=== PATIENT | female | born 1940 | race Caucasian/White ===

== ENCOUNTER → 2016-09-25 | Outpatient (CLI) | payer OTHER, MEDICAID | LOC: BHFA 15:15 | PROVIDERS: ATTEND Internal Medicine Interventional Cardiology | DX: R07.9 Chest pain, unspecified (principal) ==

== ENCOUNTER → 2016-10-09 | Outpatient (CLI) | payer OTHER, MEDICAID | LOC: BHFA 08:30 | PROVIDERS: ATTEND Internal Medicine Cardiovascular Disease | DX: R07.9 Chest pain, unspecified (principal) ==

== ENCOUNTER 2016-11-19 14:13 | Emergency (ER) | payer OTHER, MEDICAID ==
--- NOTE | 2016-11-19 16:15 | EDPHY ---
General Narrative: CHIEF COMPLAINT: Fall, multiple areas of pain HISTORY OF PRESENT ILLNESS: Patient complains of falling yesterday. She was standing in her bedroom when she tripped over some stairs near the entrance to the room. She says she fell on the carpeted surface with her left knee 1st. She then her right hand and possibly struck her head. No loss of consciousness. She is complaining of mild headache, mild right hand pain, severe left knee pain, moderate low back pain, moderate right rib pain. All areas are worse with palpation and movement. Difficulty ambulating due to the pain. No numbness or tingling. No saddle anesthesia. No incontinence of bowel or bladder. No chest pain or abdominal pain. No urinary complaints. She says that she was actually on her way to the hospital to get some routine blood work done due to an ongoing issue and was unable to do so. She is asking if this blood work can be drawn here. No other associated complaints or modifying factors. REVIEW OF SYSTEMS: Ten systems reviewed and are negative unless otherwise noted in the HPI PAST MEDICAL HISTORY: Degenerative disc disease, sciatica, her palsy the, arthritis, hypertension, chronic fatigue syndrome, sleep apnea, hypothyroid, celiac disease, depression, cataracts, incontinence, anemia, dysphagia he, neuromas.. Extensive medication list that was reviewed. PAST SURGICAL HISTORY: Hysterectomy, cholecystectomy, carpal tunnel release, right knee total arthroplasty, left knee total arthroplasty SOCIAL HISTORY: Nonsmoker. Lives here independently FAMILY HISTORY: Noncontributory EXAMINATION General Appearance: Alert, no distress Head: normocephalic, atraumatic. No Nunn sign. No raccoon eyes. No outward signs of trauma Eyes: Pupils equal and round, no conjunctival pallor or injection. No hyphema. No dysconjugate gaze. EOMs intact ENT, Mouth: Mucous membranes moist. Airway widely patent Neck: Normal inspection, supple, non-tender. No rigidity or meningismus Respiratory: Lungs are clear to auscultation. No wheezing, rhonchi or crackles Cardiovascular: Regular rate and rhythm. No murmur. Gastrointestinal: Obese Abdomen is soft and nontender Back: Tenderness of the low back. No crepitus, step-off or deformity. He Neurological: GCS 15. A&O, nonfocal, no pronator drift. No dysmetria. Strength is symmetric in all 4 limbs. Skin: Warm and dry, no rash. Bruising of the right hand and cheek. Minimal bruising of the left knee. No lacerations. Extremities: Tenderness to palpation of the left knee and right hand over the 3rd through 5th metacarpals. Range of motion is intact and symmetric in the upper extremities. Range of motion of the right lower extremity is unremarkable. The left lower extremity has difficulty with some flexion extension but there is movement in both planes. No instability of the knee. She is status post total knee arthroplasty bilaterally. Neurovascular intact distally. Psychiatric: Mood and affect normal DIFFERENTIAL DIAGNOSES: Including but not limited to all, closed head injury, contusion, hematoma, intracranial hemorrhage, skull fracture, knee fracture, knee contusion, knee sprain, hand sprain, hand fracture, low back strain, lumbar fracture MDM: 4:13 p.m. Fall yesterday with multiple areas of pain. All areas will be evaluated with x- ray or CT scan. She is in no acute distress with stable vital signs. She also brings with her a prescription for routine laboratory studies that she was unable to have done due to her fall yesterday. Charge nurse will assist in having these drawn under the name of the ordering primary care physician. 5:30 p.m. Patient re-evaluated. She is in no acute distress. CT scans of the head, cervical spine and lumbar spine have been read as no acute findings. Plain film pending. 6:30 p.m. Re-evaluated. Patient is no acute distress. Plain film still pending at this time. 7:30 p.m. Plain films of the areas of concern are negative for any acute findings. Chronic changes noted. She has been ambulated without any difficulty or need of assistance. She is comfortable with being discharged home. I do feel she is stable for discharge home. She will follow up with her established physician. She will follow up with him also for the labs that were drawn ordered by them. ED precautions discussed. Discharged home stable condition. - Diagnostics Imaging Results: Imaging Impressions Cervical Spine CT 11/19/16 16:10 Impression: Degenerative cervical spine disease. Nothing acute. Findings and recommendations discussed with Forrest Jacobs PA-C, at 1700 hours, on November 19, 2016. Final report concurs with initial preliminary interpretation. Hand X-Ray 11/19/16 16:10 Impression: 1. No acute osseous abnormality seen right hand. Head CT 11/19/16 16:10 Impression: Nothing acute intracranially. Findings and recommendations discussed with Forrest Jacobs at 1700 hour, 11/19. Final report concurs with initial preliminary interpretation. Knee X-Ray 11/19/16 16:10 Impression: 1. No acute abnormality seen about the left knee. 2. Left total knee replacement remains in good position and alignment. Lumbar Spine CT 11/19/16 16:10 Impression: Degenerative spine disease at multiple levels throughout the lumbar spine. No definite evidence for compression deformity. However, if patient has severe pain, it is possible that the patient may have bruised or contused a vertebrae without an actual compression deformity. If needed, additional evaluation with MRI is suggested. Findings and recommendations discussed with Forrest Jacobs PA-C at 1700 hours on November 19, 2016. Final report concurs with initial preliminary interpretation. Ribs w/Chest X-Ray 11/19/16 16:10 IMPRESSION: 1. No definite right rib fracture. 2. Linear atelectasis in the left lower lobe. 3. No pneumothorax. Hip X-Ray 11/19/16 16:12 Impression: 1. No acute osseous abnormality is seen about the pelvis with attention left hip. - History Smoking Status: Never smoked - Objective Vital Signs: Initial Vital Signs Temperature (C) 98.4 F 11/19/16 14:31 Heart Rate 68 11/19/16 14:31 Respiratory Rate 18 11/19/16 14:31 Blood Pressure 116/71 11/19/16 14:31 O2 Sat (%) 92 11/19/16 14:31 O2 Delivery Mode Room Air Allergies/Adverse Reactions: gluten Allergy (Intermediate, Verified 11/19/16 14:29) JOINT PAIN codeine [Codeine] Allergy (Mild, Verified 11/19/16 14:29) n/v NSAIDS (Non-Steroidal Anti-Inflamma Allergy (Mild, Verified 11/19/16 14:29) n/v latex Allergy (Verified 11/19/16 14:29) DAIRY Allergy (Intermediate, Uncoded 03/05/13 12:13) JOINT PAIN SWEETENERS Allergy (Intermediate, Uncoded 03/05/13 12:13) JOINT PAIN ENVIRONMENTAL Allergy (Mild, Uncoded 03/05/13 12:13) Home Medications: Medication Instructions Recorded Ascorbic Acid [Vitamin C 500 mg 3,000 mg PO DAILY 10/26/15 (*)] Buprenorphine [Butrans 20 mcg/hr] 1 each TD HANSEN 10/26/15 FLUoxetine [Prozac 20 MG (*)] 20 mg PO DAILY 10/26/15 Fluticasone Nasal [Flonase Nasal 4 sprays EACHNARE HS 10/26/15 [place]] Glucosamine/Chondroitin 2 each PO DAILY 10/26/15 [Glucosamine/Chondroitin (*)] Herbals/Supplements -Info Only 1 ea PO DAILY 10/26/15 Melatonin [Melatonin 3 MG (*)] 3 mg PO DAILY@18 10/26/15 Multivitamins [Multivitamin (*)] 2 each PO TIDMEAL 10/26/15 [place]-3 Fatty Acids [Fish Oil 1000 2,000 mg PO TIDMEAL 10/26/15 mg (*)] Tapentadol HCl [Nucynta 50 MG (*)] 50 mg PO BID PRN 10/26/15 amLODIPine BESYLATE [Norvasc 5 mg 10 mg PO DAILY@18 PRN 10/26/15 (*)] Fexofenadine HCl [Trena Allergy] 60 mg PO DAILY 02/22/16 Thyroid [[place]enna Thyroid 60 MG (*)] 90 mg PO DAILY 02/22/16 buPROPion SR [Wellbutrin 100mg SR 50 mg PO DAILY 02/22/16 (*)] Gabapentin Enacarbil [Horizant] 600 mg PO HS 02/25/16 Acetaminophen [Tylenol 325mg (*)] 650 mg PO Q6HRS #0 tab 02/26/16 Aspirin EC [Aspirin EC 325 mg (*)] 325 mg PO DAILY #0 tab 02/26/16 Cyclobenzaprine [Flexeril 10 MG 10 mg PO Q8HRS PRN #0 tab 02/26/16 (*)] Polyethylene Glycol 3350 [Miralax 17 gm PO DAILY PRN #0 pkt 02/26/16 17 gm (*)] Sennosides/Docusate Sodium 1 - 2 tab PO BID #0 tab 02/26/16 [Senokot-S] oxyCODONE IR [Oxycodone Ir (*)] 5 - 10 mg PO Q3HRS PRN #0 tab 02/26/16 Departure - Departure Disposition: Home, Routine, Self-Care Clinical Impression: Fall Qualifiers: Encounter type: initial encounter Qualified Code(s): W19.XXXA - Unspecified fall, initial encounter Closed head injury Qualifiers: Encounter type: initial encounter Qualified Code(s): S09.90XA - Unspecified injury of head, initial encounter Contusion of hand, right Qualifiers: Encounter type: initial encounter Qualified Code(s): S60.221A - Contusion of right hand, initial encounter Knee sprain Qualifiers: Encounter type: initial encounter Involved ligament of knee: unspecified ligament Laterality: left Qualified Code(s): S83.92XA - Sprain of unspecified site of left knee, initial encounter Condition: Good Instructions: Knee Sprain (ED), Head Injury (ED), Hand Sprain (ED) Additional Instructions: 1. Symptomatic medications as discussed as needed 2. Follow up with primary care physician Three. ED precautions as discussed Referrals: DE GARSIA [Primary Care Provider] - As per Instructions Chele Domingo MD [Medical Doctor] - As per Instructions
[2016-11-19 17:08] VITALS: O2SAT 96
[2016-11-19 19:44] VITALS: BP 135/85; PULSE 72; RESP 18; TEMP 98.2
== END 2016-11-19 19:40 | disposition home or self-care (01) ==
DX: S83.92XA Sprain of unspecified site of left knee, initial encounter (principal); S09.90XA Unspecified injury of head, initial encounter; S60.221A Contusion of right hand, initial encounter; W01.0XXA Fall on same level from slipping, tripping and stumbling without subsequent striking against object, initial encounter; Y92.003 Bedroom of unspecified non-institutional (private) residence as the place of occurrence of the external cause; Y99.8 Other external cause status; Y93.89 Activity, other specified; Z79.82 Long term (current) use of aspirin; I10 Essential (primary) hypertension; Z91.040 Latex allergy status

== ENCOUNTER → 2017-03-28 | Outpatient (CLI) | payer OTHER, MEDICAID | LOC: BMCIMAGING 11-21 15:02 | PROVIDERS: ATTEND Internal Medicine Hematology & Oncology | DX: Z12.31 Encounter for screening mammogram for malignant neoplasm of breast (principal) ==

== ENCOUNTER → 2017-04-04 | Outpatient (CLI) | payer OTHER, MEDICAID | LOC: BMCIMAGING 10:33 | PROVIDERS: ATTEND Internal Medicine Hematology & Oncology | DX: Z03.89 Encounter for observation for other suspected diseases and conditions ruled out (principal) ==

== ENCOUNTER 2017-08-20 03:34 | Observation (INO) | payer OTHER, MEDICAID ==
[2017-08-20] MEDS ORDERED: NS 1,000 ML IV ONE (03:40)
--- NOTE | 2017-08-20 03:44 | EDPHY ---
H & P Time Seen by Provider: 08/20/17 03:41 HPI/ROS: HPI CHIEF COMPLAINT: Chest pain HISTORY OF PRESENT ILLNESS: Very pleasant 77-year-old female, she presents emergency room chest discomfort she describes as a pressure/achy sensation left side of her chest and a little bit down her left arm. This woke her from sleep around 2:00 a.m. Or approximately 2 hr ago. She took 5 tabs of nitroglycerin in this finally relieved her chest discomfort. Additionally she took 4 baby 81 mg aspirins. She presents emergency room chest pain-free. She currently denies any complaints. Upon arrival it is noted her oxygen saturation 86%. Denies any pleuritic pain. Denies fever, denies productive cough. Past Medical History: History of chest pain, hypertension, right bundle-branch block, osteoarthritis Past Surgical History: Knee surgery Social History: denies daily use of drugs alcohol tobacco. Family History: Noncontributory ROS REVIEW OF SYSTEMS: A comprehensive 10 point review of systems is otherwise negative aside from elements mentioned in the history of present illness. Exam Constitutional triage nursing summary reviewed, vital signs reviewed, awake/ alert. Eyes normal conjunctivae and sclera, EOMI, PERRLA. HENT normal inspection, atraumatic, moist mucus membranes, no epistaxis, neck supple/ no meningismus, no raccoon eyes. Respiratory clear to auscultation bilaterally, normal breath sounds, no respiratory distress, no wheezing. Cardiovascular rate normal, regular rhythm, no murmur, no edema, distal pulses normal. Gastrointestinal soft, non-tender, no rebound, no guarding, normal bowel sounds, no distension, no pulsatile mass. Genitourinary no CVA tenderness. Musculoskeletal no midline vertebral tenderness, full range of motion, no calf swelling, no tenderness of extremities, no meningismus, good pulses, neurovascularly intact. Skin pink, warm, & dry, no rash, skin atraumatic. Neurologic awake, alert and oriented x 3, AAOx3, moves all 4 extremities equally, motor intact, sensory intact, CN II-XII intact, normal cerebellar, normal vision, normal speech. Psychiatric normal mood/affect. Heme/Lymph/Immune no lymphadenopathy. Differential diagnosis includes but is not limited to: ACS, atypical chest pain , pneumothorax, pneumonia, pulmonary embolism, aortic dissection, congestive heart failure, tumor, musculoskeletal pain, esophageal pain, GERD, peptic ulcer disease, pancreatitis Medical Decision Making: Plan for this patient IV establishment full cardiac cath rn obtain blood work, obtain EKG to rule out acute coronary syndrome, point care troponin, D-dimer, chest x-ray and re-evaluate. She is chest pain-free after nitroglycerin 5 tabs and 4 doses of aspirin. Re-evaluation: 0437: Patient resting comfortably in no acute distress. No chest pain at this time. Patient's workup EKG time of EKG 3:45 a.m., sinus rhythm rate of 60 right bundle -branch block present. There are T-wave abnormalities lead 3 and AVF however I do not appreciate any other areas of acute ischemia. This EKG is very similar previous EKG dated 01/14/2016. Troponin is noted to be negative D-dimer noted to be negative. CBC and electrolytes appropriate. ED x-ray chest one view cardiomegaly present. Otherwise no evidence of failure or focal pneumonia. Spoke with the hospitalist service Dr. Roldan, agrees to admit. Patient need to be admitted for chest pain further evaluation rule out. Source: Patient, EMS - Personal History Tetanus Vaccine Date: 2011 - Medical/Surgical History Hx Asthma: No Hx Chronic Respiratory Disease: No Hx Diabetes: No Hx Cardiac Disease: No Hx Renal Disease: No Hx Cirrhosis: No Hx Alcoholism: No Hx HIV/AIDS: No Hx Splenectomy or Spleen Trauma: No Other PMH: chronic pain syndrome, muscle weakness, osteoarthrosis, sciatica, R knee replacement, sleep apnea, HTN, ciliac, erbs palsy left arm, R rotator cuff tear. Anxiety - Social History Smoking Status: Never smoked Constitutional: Initial Vital Signs Temperature (C) 36.9 C 08/20/17 03:39 Heart Rate 69 08/20/17 03:39 Respiratory Rate 16 08/20/17 03:39 Blood Pressure 168/76 H 08/20/17 03:39 O2 Sat (%) 86 L 08/20/17 03:39 O2 Delivery Mode Nasal Cannula O2 (L/minute) 2 Allergies/Adverse Reactions: gluten Allergy (Intermediate, Verified 11/19/16 14:29) JOINT PAIN codeine [Codeine] Allergy (Mild, Verified 11/19/16 14:29) n/v NSAIDS (Non-Steroidal Anti-Inflamma Allergy (Mild, Verified 11/19/16 14:29) n/v latex Allergy (Verified 11/19/16 14:29) DAIRY Allergy (Intermediate, Uncoded 03/05/13 12:13) JOINT PAIN SWEETENERS Allergy (Intermediate, Uncoded 03/05/13 12:13) JOINT PAIN ENVIRONMENTAL Allergy (Mild, Uncoded 03/05/13 12:13) Home Medications: Medication Instructions Recorded Ascorbic Acid [Vitamin C 500 mg 3,000 mg PO DAILY 10/26/15 (*)] Buprenorphine [Butrans 20 mcg/hr] 1 each TD HANSEN 10/26/15 FLUoxetine [Prozac 20 MG (*)] 20 mg PO DAILY 10/26/15 Fluticasone Nasal [Flonase Nasal 4 sprays EACHNARE HS 10/26/15 [place]] Glucosamine/Chondroitin 2 each PO DAILY 10/26/15 [Glucosamine/Chondroitin (*)] Herbals/Supplements -Info Only 1 ea PO DAILY 10/26/15 Melatonin [Melatonin 3 MG (*)] 3 mg PO DAILY@18 10/26/15 Multivitamins [Multivitamin (*)] 2 each PO TIDMEAL 10/26/15 [place]-3 Fatty Acids [Fish Oil 1000 2,000 mg PO TIDMEAL 10/26/15 mg (*)] Tapentadol HCl [Nucynta 50 MG (*)] 50 mg PO BID PRN 10/26/15 amLODIPine BESYLATE [Norvasc 5 mg 10 mg PO DAILY@18 PRN 10/26/15 (*)] Fexofenadine HCl [Trena Allergy] 60 mg PO DAILY 02/22/16 Thyroid [[place] Thyroid 60 MG (*)] 90 mg PO DAILY 02/22/16 buPROPion SR [Wellbutrin 100mg SR 50 mg PO DAILY 02/22/16 (*)] Gabapentin Enacarbil [Horizant] 600 mg PO HS 02/25/16 Acetaminophen [Tylenol 325mg (*)] 650 mg PO Q6HRS #0 tab 02/26/16 Aspirin EC [Aspirin EC 325 mg (*)] 325 mg PO DAILY #0 tab 02/26/16 Cyclobenzaprine [Flexeril 10 MG 10 mg PO Q8HRS PRN #0 tab 02/26/16 (*)] Polyethylene Glycol 3350 [Miralax 17 gm PO DAILY PRN #0 pkt 02/26/16 17 gm (*)] Sennosides/Docusate Sodium 1 - 2 tab PO BID #0 tab 02/26/16 [Senokot-S] oxyCODONE IR [Oxycodone Ir (*)] 5 - 10 mg PO Q3HRS PRN #0 tab 02/26/16 Medical Decision Making - Data Points Laboratory Results: Laboratory Results 08/20/17 03:44 08/20/17 03:44 08/20/17 08/20/17 08/20/17 03:44 03:44 03:44 WBC RBC Hgb Hct MCV MCH MCHC RDW Plt Count MPV Neut % (Auto) Lymph % (Auto) Garza % (Auto) Eos % (Auto) Baso % (Auto) Nucleat RBC Rel Count Absolute Neuts (auto) Absolute Lymphs (auto) Absolute Monos (auto) Absolute Eos (auto) Absolute Basos (auto) Absolute Nucleated RBC Immature Gran % Immature Gran # PT 13.6 SEC SEC (12.0-15.0) INR 1.02 (0.83-1.16) APTT 32.8 SEC SEC (23.0-38.0) D-Dimer < 0.27 ug/mLFEU ug/mLFEU (0.00-0.50) Sodium 144 mEq/L mEq/L (135-145) Potassium 4.0 mEq/L mEq/L (3.3-5.0) Chloride 106 mEq/L mEq/L (97-110) Carbon Dioxide 28 mEq/l mEq/l (22-31) Anion Gap 10 mEq/L mEq/L (8-16) BUN 33 mg/dL H mg/dL (7-23) Creatinine 0.7 mg/dL mg/dL (0.6-1.0) Estimated GFR > 60 Glucose 93 mg/dL mg/dL (70-100) Calcium 10.0 mg/dL mg/dL (8.5-10.4) Magnesium 2.4 mg/dL H mg/dL (1.6-2.3) Total Bilirubin 0.3 mg/dL mg/dL (0.1-1.4) Conjugated Bilirubin 0.2 mg/dL mg/dL (0.0-0.5) Unconjugated Bilirubin 0.1 mg/dL mg/dL (0.0-1.1) AST 23 IU/L IU/L (14-46) ALT 38 IU/L IU/L (9-52) Alkaline Phosphatase 71 IU/L IU/L (38-126) POC Troponin I 0.00 ng/mL ng/mL (0.00-0.08) NT-Pro-B Natriuret Pep 178 pg/mL pg/mL (0-450) Total Protein 6.3 g/dL g/dL (6.3-8.2) Albumin 3.6 g/dL g/dL (3.5-5.0) Lipase 35 IU/L IU/L (23-300) 08/20/17 03:44 WBC 6.35 10^3/uL 10^3/uL (3.80-9.50) RBC 5.45 10^6/uL H 10^6/uL (4.18-5.33) Hgb 12.9 g/dL g/dL (12.6-16.3) Hct 40.2 % % (38.0-47.0) MCV 73.8 fL L fL (81.5-99.8) MCH 23.7 pg L pg (27.9-34.1) MCHC 32.1 g/dL L g/dL (32.4-36.7) RDW 18.4 % H % (11.5-15.2) Plt Count 169 10^3/uL 10^3/uL (150-400) MPV TNP Neut % (Auto) 63.7 % % (39.3-74.2) Lymph % (Auto) 17.0 % % (15.0-45.0) Garza % (Auto) 11.8 % % (4.5-13.0) Eos % (Auto) 3.9 % % (0.6-7.6) Baso % (Auto) 0.6 % % (0.3-1.7) Nucleat RBC Rel Count 0.0 % % (0.0-0.2) Absolute Neuts (auto) 4.04 10^3/uL 10^3/uL (1.70-6.50) Absolute Lymphs (auto) 1.08 10^3/uL 10^3/uL (1.00-3.00) Absolute Monos (auto) 0.75 10^3/uL 10^3/uL (0.30-0.80) Absolute Eos (auto) 0.25 10^3/uL 10^3/uL (0.03-0.40) Absolute Basos (auto) 0.04 10^3/uL 10^3/uL (0.02-0.10) Absolute Nucleated RBC 0.00 10^3/uL 10^3/uL (0-0.01) Immature Gran % 3.0 % H % (0.0-1.1) Immature Gran # 0.19 10^3/uL H 10^3/uL (0.00-0.10) PT INR APTT D-Dimer Sodium Potassium Chloride Carbon Dioxide Anion Gap BUN Creatinine Estimated GFR Glucose Calcium Magnesium Total Bilirubin Conjugated Bilirubin Unconjugated Bilirubin AST ALT Alkaline Phosphatase POC Troponin I NT-Pro-B Natriuret Pep Total Protein Albumin Lipase Medications Given: Discontinued Medications Sodium Chloride (Ns) 1,000 mls @ 0 mls/hr IV EDNOW ONE; Wide Open PRN Reason: Protocol Stop: 08/20/17 03:41 Last Admin: 08/20/17 03:51 Dose: 1,000 mls Point of Care Test Results: Chemistry 08/20/17 03:44 POC Troponin I 0.00 ng/mL ng/mL (0.00-0.08) Departure - Departure Disposition: [facility] Inpatient Acute Clinical Impression: Chest pain Qualifiers: Chest pain type: unspecified Qualified Code(s): R07.9 - Chest pain, unspecified Condition: Fair Referrals: Patient,NotPresent [Unknown] - As per Instructions
--- NOTE | 2017-08-20 03:47 | CPEKG ---
Heart Rate: 60 RR Interval: 1000 P-R Interval: 184 QRSD Interval: 154 QT Interval: 428 QTC Interval: 428 P [place]: 48 QRS [place]: 16 T Wave [place]: -20 EKG Severity - ABNORMAL ECG - EKG Impression: SINUS RHYTHM EKG Impression: LEFT ATRIAL ABNORMALITY EKG Impression: RIGHT BUNDLE BRANCH BLOCK Electronically Signed By: Kofif Barr 20-Aug-2017 07:29:17
[2017-08-20 03:55] LABS: PLATELET COUNT 169 10^3/uL (150-400)
[2017-08-20 03:58] LABS: INR 1.02 (0.83-1.16); PROTIME(PATIENT) 13.6 SEC (12.0-15.0)
[2017-08-20] MEDS ORDERED: ONDANSETRON 4 MG/2 ML VIAL IVP PRN (04:56)
[2017-08-20] MEDS ORDERED: ACETAMINOPHEN 325 MG TAB PO PRN (04:56)
[2017-08-20] MEDS ORDERED: NITROGLYCERIN 0.4 MG BTL SL PRN ×2 (05:00→09:51)
[2017-08-20] MEDS ORDERED: ALBUTEROL 3 ML DEYVIAL IH PRN (07:34)
[2017-08-20] MEDS ORDERED: ASPIRIN EC 325 MG TAB PO ONE (08:38)
[2017-08-20] MEDS ORDERED: TAPENTADOL HCL 50 MG TAB PO PRN (09:51)
[2017-08-20] MEDS ORDERED: predniSONE 1 MG TAB PO SCH (10:00)
[2017-08-20] MEDS ORDERED: GLUCOSAMINE/CHONDROITIN CAP PO SCH (10:00)
[2017-08-20] MEDS ORDERED: ASCORBIC ACID 500 MG TAB PO SCH (10:00)
[2017-08-20] MEDS ORDERED: Herbals/Supplements -Info Only PO SCH (10:00)
[2017-08-20] MEDS ORDERED: THYROID 60 MG TAB PO SCH (11:15)
[2017-08-20 11:51] VITALS: BP 161/62
[2017-08-20] MEDS ORDERED: MULTIVITAMINS 1 EACH TAB PO SCH (12:00)
[2017-08-20] MEDS ORDERED: amLODIPine BESYLATE 5 MG TAB PO ONE (12:15)
--- NOTE | 2017-08-20 15:16 | GHP ---
[f rep st] HISTORY AND PHYSICAL DATE OF ADMISSION: 08/20/2017 PRIMARY CARE PHYSICIAN: Maxime Jansen MD PRIMARY TRAFFIC SURVEY TECHNICIAN: Garry Bazzi MD SOURCE: Patient provides history, appears reliable. EMR was reviewed and case discussed with ED pro vider. CHIEF COMPLAINT: Chest pressure and pain. 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 The patient reports that she woke from sleep. She had a little bit of shortness of breath bu t no diaphoresis. No nausea or vomiting. The patient did not have any radiating pain up her neck or down her arm. The patient at home took 5 tabs of nitroglycerin as well as 4 tabs of 81 mg aspirin, and presented to the emergency department via EMS at which point her chest pain had ceased. The shaista ent does endorse slight orthopnea. She denies any PND or worsening lower extremity edema from her ba seline, which is normally present. She has not required any increased oxygen. She does wear it at h .s. at 2 L/minute. REVIEW OF SYSTEMS: Negative except as noted above. ALLERGIES: Gluten and codeine, however, patient reports that she is able to tolerate alternate opiat es, NSAIDs, latex, dairy, sweeteners. HOME MEDICATIONS: As per patient med list: Norvasc 5 mg p.o. at h.s., [place] Thyroid 90 mg p.o. in the morning, Butrans 20 mg patch weekly, Trena 1 tab in the morning, fluticasone spray ar at h.s., horizant 600 mg 1 tab after dinner, aspirin 81 mg 2 tabs at h.s., prednisone 9 mg in the morning, pro longed steroid taper down to 8 mg daily, Prilosec 1 tab in the morning, CBD oil p.r.n. for pain, Leanna extract and Nucynta p.r.n. for pain, 50 mg Wellbutrin daily. Multiple supplements and yaaf-ymm-hhhyesk vitamins. See patient list. PAST MEDICAL HISTORY: Follicular lymphoma, Erb palsy left arm and neck, sciatica, trochanteric bursi tis, arthritis of cervical spine, hypertension, chronic fatigue, chronic pain, LUISITO, nocturnal hypoxia , hypothyroidism, celiac disease, hot flashes, depression, bilateral cataracts, angina, anemia, dysph agia, baseline tremor, neuromas of both feet, memory deficit. PAST SURGICAL HISTORY: Significant for hysterectomy, cholecystectomy, carpal tunnel release, right k nee replacement, left knee replacement, and lymph node biopsy. FAMILY HISTORY: The patient reports a positive family history of coronary artery disease in her [facility] er, who had an HI at age 64. Brother with diabetes and Parkinson disease. SOCIAL HISTORY: Patient is retired. She does not drink or use tobacco. She utilizes CBD oil p.r.n. for pain. COR STATUS: Full. PHYSICAL EXAMINATION: VITAL SIGNS UPON ARRIVAL TO THE ED: Blood pressure 168/76, heart rate 69, O2 saturation 86% on room air, temperature 36.9. CURRENT VITALS: Blood pressure 165/63, heart rate 60, respiratory rate 16, O2 saturation 96% on 2 L by nasal cannula, temperature 36.5. GENERAL: No acut e distress. Pleasant, elderly, obese female sitting comfortably in a chair, chronically ill-appearin g. HEAD: Normocephalic, atraumatic. EYES: Extraocular muscles are intact. Pupils equal, round, d ecreased reactivity to light bilaterally. Right pupil just minimally larger than the left but reacti ve and symmetric thereafter. No scleral icterus or conjunctival injection. ENT: Mucous membranes a ppear moist. Some dentition is missing. No oropharyngeal erythema or exudates. NECK: Supple. Tra triny midline. CV: Regular rate and rhythm. Slightly bradycardic in the 50s to 60s. No murmurs, ru bs, or gallops appreciated. RESPIRATORY: Unlabored breathing. Patient does have some wheezing in t he right upper lung field. She is in no acute distress. No rhonchi or rales. ABDOMEN: Obese, soft , nontender to palpation. Positive bowel sounds. ILLUSIONIST: No suprapubic tenderness to palpation. No Fo davis catheter in place. EXTREMITIES: The patient does have 1 to 2+ pitting edema in bilateral lower extremities. She reports this is her baseline. 1+ pedal pulses bilaterally and symmetric. NEURO: Cranial nerves 2-12 intact and symmetric bilaterally. Patient is awake, alert, and oriented x4. PSY CH: The patient is slightly anxious, but she is pleasant and cooperative. LABORATORY STUDIES: WBC 6.35, H and H 12.9 and 40.2, MCV of 73.8, platelet count is 169, no bands. Sodium 144, potassium 4.0, chloride 106, CO2 is 28, anion gap 10, BUN is 33, creatinine 0.7, GFR grea ter than 60, glucose is 93, calcium 10.0, magnesium 2.4, total bilirubin 0.3, total protein is 6.3, a lbumin 3.6, lipase 35, ALT is 38, AST is 23, alkaline phosphatase 71. Troponin is negative. IMAGING: Chest x-ray image reviewed myself, report is still pending. Prominent pulmonary vasculatur e. Cardiac silhouette higher than normal. No acute infiltrates. Compared to chest x-ray from 01/27 16, cardiac silhouette appears to be slightly more enlarged, but otherwise stable. EKG reviewed myself. Sinus rhythm in the 60s. Right bundle branch block which is stable. QTc is [address] elevations. Compared to EKG from 01/2016, appears similar. Lexiscan stress test fro 2015 was reviewed, showing robust contractility and normal EF without evidence of deficit. ASSESSMENT AND PLAN: This is a pleasant 77-year-old female with a history of hypertension, angina, f ollicular lymphoma, chronic pain, sleep apnea, who presents to the emergency department today with parker dden onset chest pressure waking her from sleep. 1. Chest pain. Differential diagnosis including angina versus less likely acute myocardial infarcti on versus underlying respiratory issues given findings of wheezing and hypoxia upon arrival. Lower s uspicion for pulmonary embolus at this time. The patient has been chest pain free following administ ration of 5 tabs of nitroglycerin while at home. The patient already took appropriate dose of aspiri n before arrival. Her initial troponin and electrocardiogram are nondiagnostic. She reports a recen t stress test completed approximately 8 months ago as an outpatient with Dr. Bazzi at [facility]. The patient is requesting that she be discharged home as soon as possible. She is amenable to st ay for a repeat troponin to rule out, and would prefer to follow up with Dr. Bazzi on an outpatien t basis. Will plan to repeat her troponin for this morning and day hospitalist to follow up and asse ss. Patient has been admitted to Progressive Care Unit in Intensive Care Unit overflow. 2. Hypoxia. Patient with a history of obstructive sleep apnea. No known history of congestive hear t failure, but she does currently have some wheezing on exam, which could be underlying reactive airw ay disease. She denies any previous history of asthma or chronic obstructive pulmonary disease. Artur herrera have nebulizer available p.r.n. The patient is currently on a low-dose steroid taper, so will not escalate steroid therapy at this time. 3. Benign essential hypertension. Blood pressure with variable blood pressures. She is slightly an xious. Plan to resume her home medications once med rec is available for reconciliation including he r metoprolol. 4. Chronic pain. Patient has her Butrans patch in place. [place] and morphine p.r.n. for her chest p ain if it should recur. Nitroglycerin is also available p.r.n. 5. Hypothyroidism. Continue levothyroxine. 6. Allergic rhinitis. Resume patient's Trena. 7. Anxiety and depression. Continue patient's Wellbutrin and consider Ativan p.r.n. if her anxiety should escalate. 8. Obstructive sleep apnea on supplemental oxygen. 9. Anemia, iron deficiency, likely component of chronic disease, stable. No evidence of active blee ding. 10. Fluid, electrolyte, nutrition. Hold patient's diet for now pending repeat troponin. Ice chips while awaiting results. Electrolyte monitoring replacement if needed and saline lock intravenous. 11. COR status full. 12. Prophylaxis. Sequential compression devices. Lovenox if patient should stay additional day. M obilize as tolerated. 13. Disposition. Patient admitted to observation status on Progressive Care Unit in Intensive Care Unit overflow. I anticipate less than 2 midnight stay pending repeat troponins and potential need fo r additional studies. /[id number]/MODL
[2017-08-20] MEDS ORDERED: amLODIPine BESYLATE 5 MG TAB PO PRN (18:00)
--- NOTE | 2017-08-20 19:01 | PDDCSUM ---
Discharge Summary Discharge Summary: DISCHARGE SUMMARY FOLLOW-UP ITEMS: Follow-up noncardiac causes of chest pain with her senior producer DATE OF ADMISSION: 08/20/2017 DATE OF DISCHARGE: 08/20/2017 DISCHARGE DIAGNOSES: 1. Acute chest pain 2. Chronic pain syndrome 3. Acute hypoxia CONSULTATIONS: None PROCEDURES / IMAGING: Chest x-ray demonstrating cardiomegaly but no infiltrates EKG demonstrating right bundle branch block with normal sinus rhythm, same as prior CHIEF COMPLAINT: Acute chest pain SUBJECTIVE: Patient is feeling well at time of discharge, she does not have any persistent chest pain PHYSICAL EXAM ON DISCHARGE: Systolic blood pressure 151/60, heart rate 60, afebrile overnight LABS ON DISCHARGE: D-dimer negative, troponin negative x2, lipase negative, liver panel unremarkable, creatinine 0.7, white blood cell count 6400, hemoglobin 12.9 HOSPITAL COURSE BY PROBLEM: The patient presented with acute chest pain and she was ruled out for acute coronary syndrome with negative troponin x2, no ischemic changes on EKG, and was ruled out for pulmonary embolism with a negative D-dimer. I reviewed patient's outside records which demonstrate a normal Lexiscan stress on 11/16/2015 , the patient reports that she has had a follow-up stress test with her primary numerical control tool programmer approximately 8 months ago which was reportedly normal. The patient recently began a new exercise routine with her physical therapist, beginning this routine approximately 48 hr prior to presentation. Approximately 24 hr after beginning this exercise routine, the patient began experiencing anterior chest discomfort which is intermittently reproducible by body positional changes and palpation. I suspect the patient's cause of chest pain is musculoskeletal and does not require any further cardiopulmonary workup. I recommended that the patient follow up with her primary senior producer for pain management, and she has a complex chronic pain syndrome management strategy, currently consisting of steroids. The patient reports that she is unable to take any nonsteroidal anti-inflammatory medications and she reports that topical NSAIDs do not work either. I defer the best methodology of managing the patient's musculoskeletal pain to her outpatient providers. Of note, the patient did have isolated hypoxia on presentation, most likely secondary to the acute discomfort and hypoventilation experienced. She did not have any evidence of underlying pulmonary disease on her chest x- ray. DISCHARGE MEDICATIONS: Please see official discharge medication reconciliation sheet in chart , continue home medications diet changes. DISCHARGE INSTRUCTIONS: Please follow up with her outpatient senior producer and outpatient numerical control tool programmer if so desired.
[2017-08-20] MEDS ORDERED: GABAPENTIN ENACARBIL 600 MG PO SCH (21:00)
[2017-08-20] MEDS ORDERED: Vortioxetine Hydrobromide [Trintellix] 5 MG PO SCH (21:00)
[2017-08-20] MEDS ORDERED: FLUTICASONE NASAL 120 SPRAYS/16 GM MDI EACHNARE SCH (21:00)
[2017-08-20] MEDS ORDERED: ASPIRIN 81 MG CHEWABLE TAB PO SCH (21:00)
[2017-08-21] MEDS ORDERED: CETIRIZINE 10 MG TAB PO SCH (09:00)
[2017-08-21] MEDS ORDERED: PANTOPRAZOLE SODIUM 40 MG TAB PO SCH (09:00)
[2017-08-25] MEDS ORDERED: Buprenorphine [Butrans 20 Mcg/Hr] 1 EACH TD SCH (09:51)
== END 2017-08-20 12:50 | disposition home or self-care (01) ==
LOC: EDBD → EDUNIT# → F2N 05:08
PROVIDERS: ADMIT Family Medicine; ATTEND Internal Medicine
DX: R07.89 Other chest pain (principal); G89.4 Chronic pain syndrome; R09.02 Hypoxemia; F11.20 Opioid dependence, uncomplicated; I10 Essential (primary) hypertension; E03.9 Hypothyroidism, unspecified; G47.33 Obstructive sleep apnea (adult) (pediatric); D50.9 Iron deficiency anemia, unspecified; K90.0 Celiac disease; P14.0 Erb's paralysis due to birth injury; Z96.651 Presence of right artificial knee joint
CPT/HCPCS: 71045; 93005; 96360; 99285; G0378; J7512; 84484-PO

== ENCOUNTER 2018-06-12 16:58 | Observation (INO) | payer OTHER, MEDICAID ==
--- NOTE | 2018-06-12 17:05 | EDPHY ---
General Time Seen by Provider: 06/12/18 16:59 Narrative: CLINICAL IMPRESSION: [ Weakness, nausea, vomiting, diarrhea ASSESSMENT/PLAN: 77-year-old female presents to the emergency department by ambulance with 2 days of nausea, vomiting, and diarrhea. No reported fever or chills. Patient is afebrile on arrival with stable vital signs. She is hypoxic on arrival at 85 % but reportedly is noncompliant with her nocturnal oxygen use at home. No complaints of chest pain, shortness of breath, dizziness or lightheadedness. EKG essentially unchanged from prior, reviewed with Dr. Murrell. Troponin negative and chest x-ray without acute cardiopulmonary abnormality. Labs significant for leukocytosis of 17, no electrolyte imbalance, renal insufficiency, metabolic disturbance or sign of severe dehydration. Patient received IV fluids, cath UA showed no sign of UTI. She was only able to tolerate small amounts of water and while able to stand and ambulate, continued to feel weak. Given patient's high risk for falling, she will be admitted to the hospitalist for further observation overnight. She is very comfortable with this plan. Discussed with hospitalist . DIFFERENTIAL DX: Differential diagnosis includes but not limited to in no particular order, urinary tract infection, pyelonephritis, urosepsis, electrolyte imbalance, severe dehydration, acute renal failure, pneumonia ED PROCEDURES: See lab and/or imaging results below ED COURSE: 5:00 p.m.: Patient seen and assessed by myself, met by EMS. Hypoxic on arrival at 85%, afebrile, alert, mildly confused which is baseline according to caregiver. Plan for IV, labs, chest x-ray, EKG, and cath UA 6:30 p.m.: Labs reviewed, leukocytosis of 17 noted. No renal insufficiency, electrolyte imbalance, or metabolic disturbance. Chest x-ray with no acute cardiopulmonary disease. EKG unchanged from prior, reviewed with Dr. Murrell. No acute ST or T-wave change. Troponin negative. Awaiting cath UA. Urine without sign of infection. On reassessment, patient is feeling better. Would like to road test and try something to drink. Was able to ambulate with a cane and has a steady gait but is feeling too weak to go home. Only able to take small amounts of water. Will plan to admit. 8:30 p.m.: Case discussed with admitting hospitalist Dr. Peggy Castellon. She agrees to accept patient to [facility] floor. Patient comfortable with this plan. CHIEF COMPLAINT: Nausea, vomiting, diarrhea HPI: 77-year-old female who resides at [facility] presents to the emergency department by ambulance tonight with complaints of weakness in the setting of 2 days of diarrhea, and nausea and vomiting that began this morning. Patient reports she was diagnosed yesterday by a primary care physician insurance assistant with a urinary tract infection. She was told she had a several weeks ago but that it was treated with "an herbal remedy". She had a prescription for an unknown antibiotic at home and began taking that today. She only took 1 dose. She does not report a history of sepsis from UTI. No reported history of diabetes. She does report some suprapubic discomfort but no flank pain. She also reports seeing blood in her urine. No history of kidney stones. She has not had anything to eat today but has had small amounts of water. She no reported fever or chills. No chest pain or shortness of breath. Her caregiver reports she is at her baseline mental status. No URI symptoms, cough or sore throat. No chest pain. PAST MEDICAL HISTORY: Chronic pain, arthritis, hypertension, LUISITO See nurse/triage notes for additional history if applicable Pertinent Past Surgical History: Ortho surgery Family History: Noncontributory Social History: Lives at [facility], personal trainer at bedside, nonsmoker REVIEW OF SYSTEMS: All other systems negative Constitutional: No fever, no chills, positive for appetite change. Eyes: No discharge, vision change ENT: No sore throat, congestion, ear pain. Cardiovascular: No chest pain, no palpitations. Respiratory: No cough, no shortness of breath. Gastrointestinal: positive for nausea, vomiting, diarrhea, mild abdominal pain Genitourinary: Positive for hematuria, positive for dysuria, flank pain, pelvic pain Musculoskeletal: No back pain, joint swelling, joint pain, myalgias. Skin: No rashes, color change. Neurological: No headache, dizziness, positive for weakness. PHYSICAL EXAM: General Appearance: Alert, oriented, appropriate, obese, appears weak and intermittently confused but caregiver reports this is baseline, cooperative, NAD , well hydrated, non-toxic appearing, hypoxic at 85% on room air, currently on 2 L with saturations at 98%, hypertensive, no tachycardia, afebrile HEENT: Oropharynx clear is no erythema or exudates, no tonsillar hypertrophy or asymmetry. Dentition without abnormality. Neck: Supple, nontender, no lymphadenopathy, no midline pain, FROM, no meningismus. Respiratory: There are no retractions, lungs are clear to auscultation. Cardiac: Regular rate and rhythm, no murmurs or gallops. Gastrointestinal: Abdomen is soft, nontender, bowel sounds normal, no masses/ hernia, no rigidity, guarding or focal peritoneal findings. Neurological: [ Alert and oriented x 3 Skin: Warm, dry, no rashes, no nodules on palpation. Musculoskeletal: Limited range of motion of left upper extremity due to chronic weakness from . Remainder of extremities with FROM Psychiatric: Patient is oriented X 3, there is no agitation. MEDICAL DECISION MAKING: Patient was seen independently. Secondary supervising physician at time of evaluation was Dr. Murrell . Diagnosis: Weakness, N/V/D. New, requires workup Summary: See Assessment and Plan for summary of ED visit Clinical lab tests: ordered / reviewed. Independent visualization of images, tracing, or specimens: Yes / No. Decision to obtain medical records or history from someone other than the patient: Caregiver Review / Summarize previous medical records: Yes Discussed patient with another provider: Dr. Murrell, hospitalist Patient Progress: Stable for admission. - Diagnostics Imaging Results: Imaging Impressions Chest X-Ray 06/12/18 17:03 Impression: 1. Chronic bronchitis/airways disease with chronic scarring in the left lower lobe. 2. No definite acute pneumonia. 3. No pneumothorax. - History Smoking Status: Never smoked - Objective Vital Signs: Initial Vital Signs Temperature (C) 36.9 C 06/12/18 17:04 Heart Rate 88 06/12/18 17:04 Respiratory Rate 16 06/12/18 17:04 Blood Pressure 155/67 H 06/12/18 17:04 O2 Sat (%) 98 06/12/18 17:04 O2 Delivery Mode Nasal Cannula O2 (L/minute) 2 Allergies/Adverse Reactions: gluten Allergy (Intermediate, Verified 06/12/18 17:09) JOINT PAIN codeine [Codeine] Allergy (Mild, Verified 06/12/18 17:09) n/v NSAIDS (Non-Steroidal Anti-Inflamma Allergy (Mild, Verified 06/12/18 17:09) n/v latex Allergy (Verified 06/12/18 17:09) DAIRY Allergy (Intermediate, Uncoded 06/12/18 17:09) JOINT PAIN SWEETENERS Allergy (Intermediate, Uncoded 06/12/18 17:09) JOINT PAIN ENVIRONMENTAL Allergy (Mild, Uncoded 06/12/18 17:09) Home Medications: Medication Instructions Recorded Buprenorphine [Butrans 20 mcg/hr] 1 each TD FR 10/26/15 Fluticasone Nasal [Flonase Nasal 4 sprays EACHNARE HS 10/26/15 [place]] Herbals/Supplements -Info Only 1 ea PO DAILY 10/26/15 Multivitamins [Multivitamin (*)] 2 each PO TIDMEAL 10/26/15 Tapentadol HCl [Nucynta 50 MG (*)] 50 mg PO BID PRN 10/26/15 amLODIPine BESYLATE [Norvasc 5 mg 5 mg PO DAILY@18 PRN 10/26/15 (*)] Fexofenadine HCl [Trena Allergy] 60 mg PO DAILY 02/22/16 Aspirin [Aspirin 81mg (*)] 162 mg PO HS 08/20/17 Nitroglycerin [Nitrostat 0.4 mg 0.4 mg SL Q5M PRN 08/20/17 (*)] Thyroid,Pork [Tracy Thyroid] 90 mg PO DAILY06 06/12/18 Vortioxetine Hydrobromide 20 mg PO DAILY@18 06/12/18 [Brintellix] Laboratory Results: Laboratory Results 06/12/18 17:07 06/12/18 17:07 04/07/2606/12/18 06/12/18 18:50 17:55 17:30 WBC RBC Hgb Hct MCV MCH MCHC RDW Plt Count MPV Neut % (Auto) Lymph % (Auto) [place] % (Auto) Eos % (Auto) Baso % (Auto) Nucleat RBC Rel Count Absolute Neuts (auto) Absolute Lymphs (auto) Absolute Monos (auto) Absolute Eos (auto) Absolute Basos (auto) Absolute Nucleated RBC Immature Gran % Immature Gran # VBG Lactic Acid 1.8 mmol/L mmol/L (0.7-2.1) Sodium Potassium Chloride Carbon Dioxide Anion Gap BUN Creatinine Estimated GFR Glucose Calcium POC Troponin I 0.00 ng/mL ng/mL (0.00-0.08) Urine Color YELLOW Urine Appearance CLEAR Urine pH 7.0 (5.0-7.5) Ur Specific [place] 1.015 (1.002-1.030) Urine Protein NEGATIVE (NEGATIVE) Urine Ketones 1+ H (NEGATIVE) Urine Blood NEGATIVE (NEGATIVE) Urine Nitrate NEGATIVE (NEGATIVE) Urine Bilirubin NEGATIVE (NEGATIVE) Urine Urobilinogen NEGATIVE EU EU (0.2-1.0) Ur Leukocyte Esterase NEGATIVE (NEGATIVE) Urine RBC 1-3 /hpf /hpf (0-3) Urine WBC 1-3 /hpf /hpf (0-3) Ur Epithelial Cells TRACE /lpf /lpf (NONE-1+) Urine Mucus TRACE /lpf /lpf (NONE-1+) Urine Glucose NEGATIVE (NEGATIVE) 06/12/18 06/12/18 17:07 17:07 WBC 17.01 10^3/uL H 10^3/uL (3.80-9.50) RBC 6.28 10^6/uL H 10^6/uL (4.18-5.33) Hgb 14.2 g/dL g/dL (12.6-16.3) Hct 45.1 % % (38.0-47.0) MCV 71.8 fL L fL (81.5-99.8) MCH 22.6 pg L pg (27.9-34.1) MCHC 31.5 g/dL L g/dL (32.4-36.7) RDW 17.5 % H % (11.5-15.2) Plt Count 167 10^3/uL 10^3/uL (150-400) MPV TNP Neut % (Auto) 92.3 % H % (39.3-74.2) Lymph % (Auto) 4.2 % L % (15.0-45.0) [place] % (Auto) 2.9 % L % (4.5-13.0) Eos % (Auto) 0.1 % L % (0.6-7.6) Baso % (Auto) 0.1 % L % (0.3-1.7) Nucleat RBC Rel Count 0.0 % % (0.0-0.2) Absolute Neuts (auto) 15.70 10^3/uL H 10^3/uL (1.70-6.50) Absolute Lymphs (auto) 0.71 10^3/uL L 10^3/uL (1.00-3.00) Absolute Monos (auto) 0.50 10^3/uL 10^3/uL (0.30-0.80) Absolute Eos (auto) 0.01 10^3/uL L 10^3/uL (0.03-0.40) Absolute Basos (auto) 0.02 10^3/uL 10^3/uL (0.02-0.10) Absolute Nucleated RBC 0.00 10^3/uL 10^3/uL (0-0.01) Immature Gran % 0.4 % % (0.0-1.1) Immature Gran # 0.07 10^3/uL 10^3/uL (0.00-0.10) VBG Lactic Acid Sodium 138 mEq/L mEq/L (135-145) Potassium 4.2 mEq/L mEq/L (3.5-5.2) Chloride 102 mEq/L mEq/L (97-110) Carbon Dioxide 24 mEq/l mEq/l (22-31) Anion Gap 12 mEq/L mEq/L (6-14) BUN 16 mg/dL mg/dL (7-23) Creatinine 0.7 mg/dL mg/dL (0.6-1.0) Estimated GFR > 60 Glucose 139 mg/dL H mg/dL (70-100) Calcium 9.5 mg/dL mg/dL (8.5-10.4) POC Troponin I Urine Color Urine Appearance Urine pH Ur Specific [place] Urine Protein Urine Ketones Urine Blood Urine Nitrate Urine Bilirubin Urine Urobilinogen Ur Leukocyte Esterase Urine RBC Urine WBC Ur Epithelial Cells Urine Mucus Urine Glucose Medications Given: Discontinued Medications Sodium Chloride (Ns) 1,000 mls @ 0 mls/hr IV EDNOW ONE; Wide Open PRN Reason: Protocol Stop: 06/12/18 17:22 Last Admin: 06/12/18 17:40 Dose: 1,000 mls Point of Care Test Results: Chemistry 06/12/18 17:55 POC Troponin I 0.00 ng/mL ng/mL (0.00-0.08) Departure - Departure Disposition: [facility] Inpatient Acute Clinical Impression: Weakness, Nausea, vomiting, and diarrhea
[2018-06-12 17:18] LABS: PLATELET COUNT 167 10^3/uL (150-400)
[2018-06-12] MEDS ORDERED: NS 1,000 ML IV ONE (17:21)
[2018-06-12] MEDS ORDERED: oxyCODONE IR 5 MG TAB PO PRN (21:23)
[2018-06-12] MEDS ORDERED: HYDROCODONE/APAP 5/325 TAB PO PRN (21:23)
[2018-06-12] MEDS ORDERED: ACETAMINOPHEN 325 MG TAB PO PRN (21:23)
[2018-06-12] MEDS ORDERED: HYDROmorphONE/DILAUDID 1 MG/ML INJ IVP PRN (21:23)
[2018-06-12] MEDS ORDERED: PROMETHAZINE HCL 25 MG/ML INJ IVP PRN (21:23)
[2018-06-12] MEDS ORDERED: ONDANSETRON 4 MG/2 ML VIAL IVP PRN (21:23)
[2018-06-12] MEDS ORDERED: ONDANSETRON DISINTEGRATING 4 MG TAB PO PRN (21:23)
[2018-06-12] MEDS ORDERED: NITROGLYCERIN 0.4 MG BTL SL PRN (21:25)
[2018-06-12] MEDS ORDERED: Buprenorphine [Butrans 20 Mcg/Hr] TD SCH (21:30)
[2018-06-12] MEDS ORDERED: NS 1,000 ML IV SCH (21:30)
[2018-06-12] MEDS ORDERED: amLODIPine BESYLATE 5 MG TAB PO SCH (22:00)
[2018-06-12] MEDS ORDERED: FLUTICASONE NASAL 120 SPRAYS/16 GM MDI EACHNARE SCH (22:30)
[2018-06-12] MEDS: TAPENTADOL HCL 50 MG TAB PO PRN (22:47)
--- NOTE | 2018-06-12 23:18 | PDGENHP ---
History and Physical - Chief Complaint weakness, n/v/d - History of Present Illness 77 yo F with PMH that includes LUISITO, chronic pain on chronic narcotics, follicular lymphoma, obesity presenting from [facility] where she resides with complaints of n/v/d. Apparently she was recently diagnosed with UTI and treated with an antibiotic that she is not sure what it was. She states she has been not able to eat much due to her sxs, has not eaten much at all today. She was having diarrhea but that stopped yesterday and today she has not had a BM. She no longer feels nauseated and is hungry and would like to try eating but overall feels too weak and exhausted and does not feel safe to go home. She has no other complaints including no chest pain or sob, she was noted to be hypoxic on arrival to 85%. History Information - Allergies/Home Medication List Allergies/Adverse Reactions: gluten Allergy (Intermediate, Verified 06/12/18 17:09) JOINT PAIN codeine [Codeine] Allergy (Mild, Verified 06/12/18 17:09) n/v NSAIDS (Non-Steroidal Anti-Inflamma Allergy (Mild, Verified 06/12/18 17:09) n/v latex Allergy (Verified 06/12/18 17:09) DAIRY Allergy (Intermediate, Uncoded 06/12/18 17:09) JOINT PAIN SWEETENERS Allergy (Intermediate, Uncoded 06/12/18 17:09) JOINT PAIN ENVIRONMENTAL Allergy (Mild, Uncoded 06/12/18 17:09) Home Medications: Buprenorphine [Butrans 20 mcg/hr] 1 each TD FR 10/26/15 [Last Taken 06/05/18] Fluticasone Nasal [Flonase Nasal [place]] 4 sprays EACHNARE HS 10/26/15 [Last Taken 08/19/17] Herbals/Supplements -Info Only 1 ea PO DAILY 10/26/15 [Last Taken 02/08/16] Multivitamins [Multivitamin (*)] 2 each PO TIDMEAL 10/26/15 [Last Taken 08/19/17 ] Tapentadol HCl [Nucynta 50 MG (*)] 50 mg PO BID PRN 10/26/15 [Last Taken ] amLODIPine BESYLATE [Norvasc 5 mg (*)] 5 mg PO DAILY@18 PRN 10/26/15 [Last Taken 08/19/17] Fexofenadine HCl [Trena Allergy] 60 mg PO DAILY 02/22/16 [Last Taken 08/19/17] Aspirin [Aspirin 81mg (*)] 162 mg PO HS 08/20/17 [Last Taken 08/19/17] Nitroglycerin [Nitrostat 0.4 mg (*)] 0.4 mg SL Q5M PRN 08/20/17 [Last Taken Unknown] Thyroid,Pork [[place] Thyroid] 90 mg PO DAILY06 06/12/18 [Last Taken 06/12/18] Vortioxetine Hydrobromide [Brintellix] 20 mg PO DAILY@18 06/12/18 [Last Taken Unknown] I have personally reviewed and updated: family history, medical history, social history, surgical history - Past Medical History arthritis (c spine), cancer (follicular lymphoma) Additional medical history: LUISITO on cpap. Erb palsy. sciatica. chronic back pain/continuous narcotic use and dependency. chronic fatigue syndrome. celiac - Surgical History Reports: cholecystectomy, hysterectomy Additional surgical history: bilateral knee surgery. LN biopsy. carpal tunnel release - Family History Positive for: mother with history of CAD younger than 65 (mom with RI at 64) Additional family history: brother with DM and PD - Social History Smoking Status: Never smoked Alcohol Use: None Drug Use: None Additional social history: resides at [facility] Review of Systems Review of Systems: ROS: 10pt was reviewed & negative except for what was stated in HPI & below Physical Exam Physical Exam: Temp Pulse Resp BP Pulse Ox 37.0 C 88 18 163/70 H 92 06/12/18 21:45 06/12/18 21:45 06/12/18 21:45 06/12/18 22:48 06/12/18 21:45 O2 (L/minute) 2 Constitutional: chronically ill appearing, obese Eyes: PERRL, anicteric sclera Ears, Nose, Mouth, Throat: hearing normal, dry mucous membranes Cardiovascular: regular rate and rhythym, no murmur, rub, or gallop, edema Respiratory: reduced air movement, expiratory wheeze Gastrointestinal: normoactive bowel sounds, soft, non-tender abdomen Genitourinary: no bladder tenderness Skin: warm, normal color Musculoskeletal: full muscle strength Neurologic: AAOx3 Psychiatric: interacting appropriately, not anxious, not encephalopathic Lab Data & Imaging Review 06/12/18 17:07 06/12/18 17:07 WBC 17.01 10^3/uL (3.80-9.50) H 06/12/18 17:07 RBC 6.28 10^6/uL (4.18-5.33) H 06/12/18 17:07 Hgb 14.2 g/dL (12.6-16.3) 06/12/18 17:07 Hct 45.1 % (38.0-47.0) 06/12/18 17:07 MCV 71.8 fL (81.5-99.8) L 06/12/18 17:07 MCH 22.6 pg (27.9-34.1) L 06/12/18 17:07 MCHC 31.5 g/dL (32.4-36.7) L 06/12/18 17:07 RDW 17.5 % (11.5-15.2) H 06/12/18 17:07 Plt Count 167 10^3/uL (150-400) 06/12/18 17:07 MPV TNP 06/12/18 17:07 Neut % (Auto) 92.3 % (39.3-74.2) H 06/12/18 17:07 Lymph % (Auto) 4.2 % (15.0-45.0) L 06/12/18 17:07 [place] % (Auto) 2.9 % (4.5-13.0) L 06/12/18 17:07 Eos % (Auto) 0.1 % (0.6-7.6) L 06/12/18 17:07 Baso % (Auto) 0.1 % (0.3-1.7) L 06/12/18 17:07 Nucleat RBC Rel Count 0.0 % (0.0-0.2) 06/12/18 17:07 Absolute Neuts (auto) 15.70 10^3/uL (1.70-6.50) H 06/12/18 17:07 Absolute Lymphs (auto) 0.71 10^3/uL (1.00-3.00) L 06/12/18 17:07 Absolute Monos (auto) 0.50 10^3/uL (0.30-0.80) 06/12/18 17:07 Absolute Eos (auto) 0.01 10^3/uL (0.03-0.40) L 06/12/18 17:07 Absolute Basos (auto) 0.02 10^3/uL (0.02-0.10) 06/12/18 17:07 Absolute Nucleated RBC 0.00 10^3/uL (0-0.01) 06/12/18 17:07 Immature Gran % 0.4 % (0.0-1.1) 06/12/18 17:07 Immature Gran # 0.07 10^3/uL (0.00-0.10) 06/12/18 17:07 VBG Lactic Acid 1.8 mmol/L (0.7-2.1) 06/12/18 17:30 Sodium 138 mEq/L (135-145) 06/12/18 17:07 Potassium 4.2 mEq/L (3.5-5.2) 06/12/18 17:07 Chloride 102 mEq/L (97-110) 06/12/18 17:07 Carbon Dioxide 24 mEq/l (22-31) 06/12/18 17:07 Anion Gap 12 mEq/L (6-14) 06/12/18 17:07 BUN 16 mg/dL (7-23) 06/12/18 17:07 Creatinine 0.7 mg/dL (0.6-1.0) 06/12/18 17:07 Estimated GFR > 60 06/12/18 17:07 Glucose 139 mg/dL (70-100) H 06/12/18 17:07 Calcium 9.5 mg/dL (8.5-10.4) 06/12/18 17:07 POC Troponin I 0.00 ng/mL (0.00-0.08) 06/12/18 17:55 Urine Color YELLOW 06/12/18 18:50 Urine Appearance CLEAR 06/12/18 18:50 Urine pH 7.0 (5.0-7.5) 06/12/18 18:50 Ur Specific [place] 1.015 (1.002-1.030) 06/12/18 18:50 Urine Protein NEGATIVE (NEGATIVE) 06/12/18 18:50 Urine Ketones 1+ (NEGATIVE) H 06/12/18 18:50 Urine Blood NEGATIVE (NEGATIVE) 06/12/18 18:50 Urine Nitrate NEGATIVE (NEGATIVE) 06/12/18 18:50 Urine Bilirubin NEGATIVE (NEGATIVE) 06/12/18 18:50 Urine Urobilinogen NEGATIVE EU (0.2-1.0) 06/12/18 18:50 Ur Leukocyte Esterase NEGATIVE (NEGATIVE) 06/12/18 18:50 Urine RBC 1-3 /hpf (0-3) 06/12/18 18:50 Urine WBC 1-3 /hpf (0-3) 06/12/18 18:50 Ur Epithelial Cells TRACE /lpf (NONE-1+) 06/12/18 18:50 Urine Mucus TRACE /lpf (NONE-1+) 06/12/18 18:50 Urine Glucose NEGATIVE (NEGATIVE) 06/12/18 18:50 Visualized and Interpreted Chest x-ray results: Yes Chest X-Ray results: no infiltrate, other (chronic airways disease) Visualized and Interpreted EKG results: Yes EKG Interpretation: Positive for: normal sinsus rhythm, right bundle branch block EKG additional interpertation: no sig change Assessment & Plan Assessment: Weakness (Acute) Nausea, vomiting, and diarrhea (Acute) 77 yo F with PMH of chronic pain/continuous opiate use and dependency, luisito presenting with weakness in setting of n/v/d for several days # n/v/d: overall sounds like it has now resolved, no BM so far today and no longer nauseated and wanting to eat. Will get GI pathogen panel if diarrhea recurs. IVF, nausea medications, advance diet as tolerated. She notes she was not able to take her pain meds due to these sxs, so query if withdrawal contributing # acute hypoxic respiratory failure: with o2 sats of 85% on arrival, improved to mid 90s on 2L. No infiltrate on cxr, does have underlying luisito and likely ohs as well likely contributing. Airways disease noted on cxr, prn nebs, ambulation , IS # chronic pain/continuous opiate use and dependency: on buprenorphine currently TD but patient states she was not able to take her pain meds due to her n/v so unclear somewhat why not--will resume home meds with additional pain meds available if needed. ? some withdrawal as above # luisito: will continue cpap # leukocytosis: fairly high at 17 and only localizing sxs GI as above, will test GI pathogen panel if diarrhea recurs, no e/o UTI on UA, no pneumonia noted on cxr, will trend overnight, no abx currently but if fever or other changes occur low threshold to begin them # follicular lymphoma: followed by onc # FC, friend Anita MOSES, paperwork in chart # observation status Patient new to my care. Old records reviewed and summarized as above, care plan reviewed with ER doctor as above.
[2018-06-12] MEDS ORDERED: ALBUTEROL 3 ML DEYVIAL IH PRN (23:32)
[2018-06-13 05:13] LABS: PLATELET COUNT 146 10^3/uL (150-400)
[2018-06-13] MEDS ORDERED: THYROID 60 MG TAB PO SCH (06:00)
[2018-06-13] MEDS: TAPENTADOL HCL 50 MG TAB PO PRN (07:33)
[2018-06-13] MEDS ORDERED: MULTIVITAMINS 1 EACH TAB PO SCH (08:00)
[2018-06-13 08:44] VITALS: BP 137/57
[2018-06-13] MEDS ORDERED: CETIRIZINE 10 MG TAB PO SCH (09:00)
--- NOTE | 2018-06-13 09:36 | HOSPPROG ---
Hospitalist Progress Note Assessment/Plan: 77 yo F here w self limited n/v/d home today se dc summary Subjective: no n/v/d Objective: Vital Signs Temp Pulse Resp BP Pulse Ox 36.5 C 69 18 137/57 H 90 L 06/13/18 07:28 06/13/18 07:28 06/13/18 07:28 06/13/18 08:43 06/13/18 07:28 Laboratory Results 06/13/18 04:20 06/13/18 04:20 06/12/18 06/13/18 06/14/18 05:59 05:59 05:59 Intake Total 1000 Output Total 300 Balance 1000 -300 - Physical Exam Constitutional: no apparent distress, appears nourished Eyes: PERRL, anicteric sclera Ears, Nose, Mouth, Throat: moist mucous membranes, hearing normal Cardiovascular: regular rate and rhythym, no murmur, rub, or gallop Respiratory: no respiratory distress, no rales or rhonchi Gastrointestinal: normoactive bowel sounds, soft, non-tender abdomen Genitourinary: no bladder fullness, No fonseca in urethra Skin: warm, normal color Musculoskeletal: full muscle strength ICD10 Worksheet Patient Problems: Problems Problem Status Onset Nausea, vomiting, and diarrhea Acute Weakness Acute Chest pain Acute Chronic Disease Mgmt/Transitional Care Acute Osteoarthritis of knee Acute Primary localized osteoarthritis of left knee Acute
--- NOTE | 2018-06-13 10:17 | GDS ---
[f rep st] DISCHARGE SUMMARY DISCHARGE DIAGNOSES: 1. Nausea, vomiting, diarrhea, resolved without intervention. 2. History of follicular lymphoma. 3. Obstructive sleep apnea, obstructive sleep apnea on continuous positive airway pressure _. 4. Chronic pain with continuous narcotic use and dependency. 5. Chronic fatigue syndrome. 6. Celiac disease. HISTORY OF PRESENT ILLNESS: Please see admission history and physical by Dr. Jensen De La Cruz. The cory rodriguez presented with nausea, vomiting, and diarrhea that had pretty much resolved prior to admission . She did not have sepsis. Workup included a nonischemic EKG, a normal chest x-ray. She was observ ed overnight, with no bowel movement. She is able to eat without difficulty. She is discharged home . She is noted to have a microcytic anemia that is long standing. She is followed by Dr. Zoey rodriguez an outpatient. She had iron studies in the past, probably consistent with anemia of chronic diseas e. I will defer further management of this to him. /[id number]/MODL
--- NOTE | 2018-06-13 10:25 | ASMTLACE ---
RAMÍREZ Comorbidities - select Answers: Any tumor (including all that apply lymphoma or leukemia) Opioid dependence / Chronic pain Other Notes: LUISITO # of Emergency department Answers: 1-2 visits in the last 6 months Score: 8 Date Signed: 06/13/2018 10:25 AM Electronically Signed By:KENNETH Becerril
--- NOTE | 2018-06-13 10:28 | ASDISCHSUM ---
Discharge Information Plan Status:Home with No Needs Medically Cleared to Leave:06/13/2018 Discharge Date:06/13/2018 CM D/C Disposition:Home, Routine, Self-Care ADT D/C Disposition: Projected Discharge Date:06/13/2018 Transportation at D/C:Friend Discharge Delay Reason: Follow-Up Date:06/13/2018 Discharge Slot: Final Diagnosis: Placement Information Patient Contact Information Contact Name:DWAYNE Relationship:Friend Address: City: [facility] Phone: State/Zip Code: Email: Financial Information Financial Class:Medicare Primary Plan Desc:MEDICARE OUTPATIENT Primary Plan Number:[id number] Secondary Plan Desc:MEDICAID HEALTH FIRST [place] OP Secondary Plan Number:[id number] Assessment Information LACE LACE Comorbidities - select Answers: Any tumor (including all that apply lymphoma or leukemia) Opioid dependence / Chronic pain Other Notes: LUISITO # of Emergency department Answers: 1-2 visits in the last 6 months Score: 8 Date Signed: 06/13/2018 10:25 AM Electronically Signed By:KENNETH Becerril Intervention Information
--- NOTE | 2018-06-13 15:09 | ASMTDCNOTE ---
Case Management Discharge Discharge Order Complete? Answers: Yes Patient to Obtain Answers: Independently Medications Transportation Arranged Answers: Family/Friends Discharge Comments Notes: Pt was admitted with nausea/vomiting/diarrhea. She is medically cleared to return to [facility]. She has no CM needs. Date Signed: 06/13/2018 03:08 PM Electronically Signed By:KENNETH Becerril
[2018-06-13] MEDS ORDERED: Vortioxetine Hydrobromide [Trintellix] 20 MG PO SCH (18:00)
[2018-06-13] MEDS ORDERED: ASPIRIN 81 MG CHEWABLE TAB PO SCH (21:00)
--- NOTE | 2018-06-14 15:20 | CPEKG ---
Test Reason : OPEN Blood Pressure : / mmHG Vent. Rate : 083 BPM Atrial Rate : 083 BPM P-R Int : 200 ms QRS Dur : 166 ms QT Int : 428 ms P-R-T Axes : 053 027 -28 degrees QTc Int : 503 ms Sinus rhythm Left atrial enlargement Right bundle branch block Confirmed by Harley Murrell ([id number]) on 06/14/2018 3:19:26 PM Referred By: Harley Murrell Confirmed By:Harley Murrell
== END 2018-06-13 11:27 | disposition home or self-care (01) ==
LOC: EDUNIT# → F3E 21:40
PROVIDERS: ADMIT Internal Medicine; ATTEND Internal Medicine
DX: R11.2 Nausea with vomiting, unspecified (principal); R19.7 Diarrhea, unspecified; J96.01 Acute respiratory failure with hypoxia; G47.33 Obstructive sleep apnea (adult) (pediatric); G89.29 Other chronic pain; R53.82 Chronic fatigue, unspecified; K90.0 Celiac disease; F11.20 Opioid dependence, uncomplicated; Z87.440 Personal history of urinary (tract) infections; Z85.72 Personal history of non-Hodgkin lymphomas
CPT/HCPCS: 51701; 71046; 93005; 96360; 97165; 99285; G0378; 84484-ER

== ENCOUNTER 2018-06-22 18:49 | Emergency (ER) | payer OTHER, MEDICAID ==
--- NOTE | 2018-06-22 19:04 | EDPHY ---
H & P [facility]: Patient - Personal History Current Tetanus/Diphtheria Vaccine: Yes Current Tetanus Diphtheria and Acellular Pertussis (TDAP): Yes Tetanus Vaccine Date: 2011 - Medical/Surgical History Hx Asthma: No Hx Chronic Respiratory Disease: No Hx Diabetes: No Hx Cardiac Disease: No Hx Renal Disease: No Hx Cirrhosis: No Hx Alcoholism: No Hx HIV/AIDS: No Hx Splenectomy or Spleen Trauma: No Other PMH: chronic pain syndrome, muscle weakness, osteoarthrosis, sciatica, R knee replacement, sleep apnea, HTN, ciliac, erbs palsy left arm, R rotator cuff tear. Anxiety, L knee replacement, lymphoma (in remission) - Social History Smoking Status: Never smoked Time Seen by Provider: 06/22/18 19:00 HPI/ROS: HPI CHIEF COMPLAINT: Mechanical trip and fall, head injury HISTORY OF PRESENT ILLNESS: This patient is a 77-year-old female she arrives to the emergency room by EMS after she had mechanical trip and fall while walking her dog. She was walking her dog and went to bend over to slate picker something that she dropped fell forward with head strike. She sustained a left eyebrow laceration. No LOC. She denies any neck pain chest pain or shortness of breath. Denies syncope. Has a frontal headache. Past Medical History: Significant medical history for obstructive sleep apnea, chronic fatigue syndrome, follicular lymphoma, recent hospitalization for nausea vomiting diarrhea. Past Surgical History: No recent surgical history Social History: Denies drugs alcohol tobacco. Resides at [facility]. Family History: Noncontributory ROS REVIEW OF SYSTEMS: 10 Systems were reviewed and negative with the exception of the elements mentioned in the history of present illness. Exam Constitutional triage nursing summary reviewed, vital signs reviewed, awake/ alert. GCS 15, alert or x4. Eyes normal conjunctivae and sclera, EOMI, PERRLA. HENT head and neck atraumatic on exam except for left eyebrow laceration, no significant hematoma, no midline neck pain or step-offs or crepitus, moist mucus membranes, no epistaxis, neck supple/ no meningismus, no raccoon eyes. Respiratory clear to auscultation bilaterally, normal breath sounds, no respiratory distress, no wheezing. Cardiovascular rate normal, regular rhythm, no murmur, no edema, distal pulses normal. Gastrointestinal soft, non-tender, no rebound, no guarding, normal bowel sounds, no distension, no pulsatile mass. Genitourinary no CVA tenderness. Musculoskeletal no midline vertebral tenderness, full range of motion, no calf swelling, no tenderness of extremities, no meningismus, good pulses, neurovascularly intact. Skin pink, warm, & dry, no rash, skin atraumatic. Neurologic awake, alert and oriented x 3, AAOx3, moves all 4 extremities equally, motor intact, sensory intact, CN II-XII intact, normal cerebellar, normal vision, normal speech. Psychiatric normal mood/affect. Heme/Lymph/Immune no lymphadenopathy. Differential Diagnosis: Includes but is not limited to closed head injury, intracranial bleed, subdural, traumatic subarachnoid, skull fracture, soft tissue injury, facial laceration, cervical spine fracture Medical Decision Making: Plan for this patient CT scan head without contrast, CT cervical spine without contrast for trauma. Re-evaluation: CT scan head without contrast and CT cervical spine without contrast negative for acute traumatic injury. X-ray of the right elbow I reviewed negative for acute fracture. Patient's head lacerations been copiously irrigated and cleaned and repaired. Please see Valdez ELLIS note for closure. Patient understands have sutures out in 7 days. Ice her hematoma. Return precautions discussed with the patient understands return emergency room if worsening headache, fever, vomiting, not doing well (Koffi Barr) Constitutional: Initial Vital Signs Temperature (C) 36.6 C 06/22/18 18:50 Heart Rate 84 06/22/18 18:50 Respiratory Rate 16 06/22/18 18:50 Blood Pressure 195/88 H 06/22/18 18:50 O2 Sat (%) 92 06/22/18 18:50 O2 Delivery Mode Room Air Allergies/Adverse Reactions: gluten Allergy (Intermediate, Verified 06/12/18 17:09) JOINT PAIN codeine [Codeine] Allergy (Mild, Verified 06/12/18 17:09) n/v NSAIDS (Non-Steroidal Anti-Inflamma Allergy (Mild, Verified 06/12/18 17:09) n/v latex Allergy (Verified 06/12/18 17:09) DAIRY Allergy (Intermediate, Uncoded 06/12/18 17:09) JOINT PAIN SWEETENERS Allergy (Intermediate, Uncoded 06/12/18 17:09) JOINT PAIN ENVIRONMENTAL Allergy (Mild, Uncoded 06/12/18 17:09) Home Medications: Medication Instructions Recorded Buprenorphine [Butrans 20 mcg/hr] 1 each TD FR 10/26/15 Fluticasone Nasal [Flonase Nasal 4 sprays EACHNARE HS 10/26/15 [place]] Herbals/Supplements -Info Only 1 ea PO DAILY 10/26/15 Multivitamins [Multivitamin (*)] 2 each PO TIDMEAL 10/26/15 Tapentadol HCl [Nucynta 50 MG (*)] 50 mg PO BID PRN 10/26/15 amLODIPine BESYLATE [Norvasc 5 mg 5 mg PO DAILY@18 PRN 10/26/15 (*)] Fexofenadine HCl [Trena Allergy] 60 mg PO DAILY 02/22/16 Aspirin [Aspirin 81mg (*)] 162 mg PO HS 08/20/17 Nitroglycerin [Nitrostat 0.4 mg 0.4 mg SL Q5M PRN 08/20/17 (*)] Thyroid,Pork [[place] Thyroid] 90 mg PO DAILY06 06/12/18 Vortioxetine Hydrobromide 20 mg PO DAILY@18 06/12/18 [Trintellix] Medical Decision Making - Diagnostics Imaging Results: Imaging Impressions Cervical Spine CT 06/22/18 18:57 Impression: 1. No acute fracture or soft tissue swelling. 2. If the patient has persistent pain or neurologic deficits, consider cervical spine MRI. Jono Izabella was notified of these findings by telephone at 7:45 PM on [address] 06/22/18 18:57 Impression: Left frontal scalp hematoma without evidence of intracranial hemorrhage or calvarial fracture. Jono Barr was notified of these findings by telephone at 7:45 PM on 2018 Elbow X-Ray 06/22/18 20:03 Impression: No evidence of acute, displaced fracture. With persistent pain, continued radiographic surveillance is recommended.. Procedures: Procedure: Laceration repair. Verbal consent was obtained from the patient. The irregular, 5 cm, complex, deep laceration on the left forehead sparing the eyebrow was anesthetized in the usual fashion using 6 mL of 1% lidocaine with epinephrine. The wound was irrigated, draped and explored to its base with a gloved finger. There were no deep structures involved. No tendon injury was identified. The wound was repaired with #6, 5 0 Prolene in simple interrupted pattern. Good hemostasis was achieved and patient tolerated procedure well. The procedure was performed by myself. (Alicia Kellogg) Departure - Departure Disposition: Home, Routine, Self-Care Clinical Impression: Laceration of head Qualifiers: Encounter type: initial encounter Location of open wound of head: unspecified part of head Foreign body presence: without foreign body Qualified Code(s): S01.91XA - Laceration without foreign body of unspecified part of head, initial encounter Condition: Good Instructions: Care For Your Stitches (ED), Laceration (ED), Hematoma (ED) Additional Instructions: 1. Stay well-hydrated drink lots of fluids and rest. 2. Your sutures in your head laceration need to be removed in 7 days. Return to have them removed. 3. Keep her wound clean, dry and protected in. Warm soapy water to clean it. 4. Please return to the emergency room if develops any worsening symptoms questions or concerns. 5. Ice your head hematoma. Referrals: NONE *PRIMARY CARE P,. [Primary Care Provider] - As per Instructions
[2018-06-22 22:01] VITALS: BP 173/85
== END 2018-06-22 22:00 | disposition home or self-care (01) ==
LOC: EDUNIT#
PROC: 0HQ1XZZ Repair Face Skin, External Approach (ICD-10-PCS; principal; 2018-06-22)
DX: S01.91XA Laceration without foreign body of unspecified part of head, initial encounter (principal); I10 Essential (primary) hypertension; W01.198A Fall on same level from slipping, tripping and stumbling with subsequent striking against other object, initial encounter; Y93.K1 Activity, walking an animal